=== PATIENT | male | born 1950 | race Caucasian/White ===

== ENCOUNTER 2017-03-24 10:14 | Emergency (ER) | payer BC, MEDICARE ==
[~2017-03-24] VITALS: Ht 180.3 cm; Wt 95.3 kg
[~2017-03-24 10:14] MED LIST: ASPIR-LOW81 MG PO; CIPRO; FUROSEMIDE40 MG PO; METOPROLOL SUCC25 MG PO; PACERONE100 MG PO; PRILOSEC; PRILOSEC20 MG PO; RENVELA800 MG PO; SODIUM BICARB; WARFARIN SODIUM1 MG PO; Z.0.FLOMAX0.4 MG
[2017-03-24 11:33] LABS: ALBUMIN 2.3 g/dL (3.5-5.0); ALBUMIN/GLOBULIN RATIO 0.5 (0.8-2.0); ANION GAP 22.1 mmol/L (8-16); CALCIUM 8.9 mg/dL (8.4-10.2); CREATININE, SERUM 4.45 mg/dL (0.72-1.25); POTASSIUM 4.1 mmol/L (3.5-5.1)
[2017-03-24] MEDS ORDERED: ONDANSETRON HCL INJ 2 MG/ML VIAL IV STA (12:48)
[2017-03-24] MEDS ORDERED: MORPHINE SULFATE 2 MG/ML SYR IV STA (12:48)
[2017-03-24 12:59] LABS: BASOPHILS % 0.1 % (0.0-1.0); LYMPHOCYTES # (AUTO) 0.9 (1.0-3.2); MEAN CORPUSCULAR HEMOGLOBIN 28.8 pg (28-32); MEAN CORPUSCULAR HGB CONC 31.8 g/dL (31-35); MEAN CORPUSCULAR VOLUME 90.4 fL (81-99); MONOCYTES % 6.4 % (4.4-11.3); NEUTROPHILS # (AUTO) 13.5 (2.1-6.9); PLATELET COUNT 235 x10e3/uL (140-360); RED BLOOD COUNT 2.19 x10e6/uL (4.3-5.7); RED CELL DISTRIBUTION WIDTH 18.5 % (11.7-14.4)
[2017-03-24 13:06] LABS: HEMATOCRIT 19.8 % (38.2-49.6); HEMOGLOBIN 6.3 g/dL (14.0-18.0)
[2017-03-24] MEDS ORDERED: DIATRIZOATE MEGL/DIATRIZOA SOD 30 ML BTL PO ONE (13:29)
[2017-03-24 13:31] LABS: AMYLASE 45 U/L (25-125); LIPASE 14 U/L (8-78)
[2017-03-24] MEDS ORDERED: DILTIAZEM HCL 5 MG/ML 5 ML VIAL IV STA (13:45)
[2017-03-24] MEDS ORDERED: SODIUM CHLORIDE 0.9% 1000ML 1,000 ML ONE (13:46)
[2017-03-24] MEDS ORDERED: ADENOSINE 6MG/2ML 4 ML ONE (13:46)
[2017-03-24] MEDS ORDERED: HYDROMORPHONE 2MG/ML INJ IV ONE (14:00)
[2017-03-24] MEDS ORDERED: MIDAZOLAM HCL 2 MG/2 ML VIAL IV STA ×2 (14:00→14:01)
[2017-03-24] MEDS ORDERED: ADENOSINE 6MG/2ML 2 ML ONE (14:01)
[2017-03-24] MEDS ORDERED: MIDAZOLAM HCL 2 MG/2 ML VIAL ONE (14:07)
[2017-03-24] MEDS ORDERED: ADENOSINE 6 MG/2 ML VIAL IV ONE ×2 (14:30)
--- NOTE | 2017-03-24 14:51 | Diagnostic Imaging Report ---
PROCEDURE: A single AP view of the chest. COMPARISON: Chest radiograph 10/10/2010. INDICATIONS: LOWER ABDOMINAL PAIN FINDINGS: Lines/tubes: None. Lungs: The lungs are well inflated. Diffuse consolidations throughout both lungs, most prominent in the mid and lower lungs. Pleura: There is no pleural effusion or pneumothorax. Heart and mediastinum: Stable mild enlargement of the cardiac silhouette. Bones: No acute bony abnormality. Median sternotomy wires. IMPRESSION: Diffuse consolidations throughout both lungs may represent multifocal pneumonia or alveolar edema in the appropriate clinical setting. Superimposed malignancy not excluded. Dictated by: Elgin Dias M.D. on 03/24/2017 at 14:54 Electronically approved by: Elgin Dias M.D. on 03/24/2017 at 14:59
[2017-03-24] MEDS ORDERED: PANTOPRAZOLE 40 MG 10ML VIAL IV STA (15:23)
[2017-03-24] MEDS ORDERED: PANTOPRAZOLE INJ 40 MG in SODIUM CHLORIDE 0.9% 50ML 50 ML IV SCH (15:30)
[2017-03-24] MEDS ORDERED: AZITHROMYCIN 500MG/NS 250 ML 250 ML IV ONE (16:30)
[2017-03-24] MEDS ORDERED: CEFTRIAXONE SOD 1 GM VIAL IV ONE (16:30)
[2017-03-24] MEDS ORDERED: PANTOPRAZOL 200MG/SOD CHL 0.9% 250 ML IV SCH (16:30)
--- NOTE | 2017-03-24 16:40 | Diagnostic Imaging Report ---
PROCEDURE: CT ABDOMEN AND PELVIS WITHOUT CONTRAST TECHNIQUE: The abdomen and pelvis were scanned utilizing a multidetector helical scanner from the diaphragm to the lesser trochanter. No IV contrast was administered because of elevated creatine. Coronal and sagittal multiplanar reformations were obtained. COMPARISON: CT abdomen and pelvis 04/07/2012, chest radiograph 03/24/2017 INDICATIONS: UPPER ABDOMINAL PAIN TODAY FINDINGS: ABSENCE OF INTRAVENOUS CONTRAST DECREASES SENSITIVITY FOR DETECTION OF FOCAL LESIONS AND VASCULAR PATHOLOGY. LOWER THORAX: Diffuse basilar opacities. Aortic valve prosthesis. Vascular calcifications. HEPATOBILIARY: Multiple hepatic cysts. An ill-defined approximately 5.9 x 7.8 x 7.9 cm hypoattenuating area in the left hepatic lobe measures greater than fluid density is indeterminate (series 2 image 31). No biliary ductal dilatation. SPLEEN: No splenomegaly. PANCREAS: No focal masses or ductal dilatation. ADRENALS: No adrenal nodules. KIDNEYS/URETERS: Polycystic kidney disease with enlarged kidneys containing innumerable cysts of varying complexity, some of which are hemorrhagic or contain calcifications. Evaluation for masses or cyst septations is limited without IV contrast. Right kidney measures approximately 35.2 cm in length and the left kidney measures approximately 29.7 cm in length. No hydronephrosis. Few calcifications may represent non-obstructing calculi versus cyst wall calcifications, for example in the right superior pole measuring 0.5 cm (coronal image 77). PELVIC ORGANS/BLADDER: Urinary bladder is collapsed. Prostate contains a nonspecific 1.7 cm hypoattenuating region centrally, but is suboptimally evaluated with CT. PERITONEUM / RETROPERITONEUM: Moderate amount of hyperdense fluid in the pelvis measures 56.6 HU and may represent hemorrhage. Fluid is also noted in the left paracolic cutter, measuring up to approximately 83.4 HU, which may suggest the source is in the upper abdomen, although streak artifacts from patients arms limits accurate determination of density. A 2.3 cm high attenuating collection in the anterior abdomen (series 2 image 54) may reflect a focal collection of hemorrhage or nodule. LYMPH NODES: No lymphadenopathy. VESSELS: Diffuse vascular calcifications. No abdominal aortic aneurysm. GI TRACT: No distention or wall thickening. BONES AND SOFT TISSUES: Unremarkable. IMPRESSION: 1. Moderate amount of likely hemorrhagic fluid in the left paracolic gutter and pelvis. Given aortic valve prosthesis, finding may reflect hemorrhage related to anticoagulation. Lack of left perinephric hematoma makes ruptured hemorrhagic renal cyst less likely. Hemorrhage from malignancy not excluded given the left hepatic lesion and questionable second tiny hemorrhagic collection in the anterior abdomen versus omental nodule. 2. Diffuse consolidations in both lung bases which may reflect pulmonary hemorrhage, multifocal pneumonia, less likely alveolar edema in absence of secondary findings. 3. Indeterminate left hepatic hypoattenuating lesion which may represent a mass or hemorrhagic/proteinaceous hepatic cyst. If GFR allows, recommend MRI or CT abdomen without and with contrast. Otherwise, recommend MRI without contrast for further characterization. 4. Polycystic kidney disease. Findings discussed with Dr. Adam on at [id number]. Dictated by: Elgin Dias M.D. on 03/24/2017 at 16:48 Electronically approved by: Elgin Dias M.D. on 03/24/2017 at 16:48
[2017-03-24] MEDS ORDERED: LEVOFLOXACIN 750MG/D5W 150ML 150 ML IV ONE (16:45)
[2017-03-24] MEDS ORDERED: PHYTONADIONE 10MG/ML 1 ML ONE (17:38)
[2017-03-24] MEDS ORDERED: SENSIPAR60 MG PO (19:36)
[2017-03-24] MEDS ORDERED: RENVELA0.8 GM (19:36)
[2017-03-24] MEDS ORDERED: LISINOPRIL10 MG PO (19:36)
[2017-03-24] MEDS ORDERED: VITAMIN D31000 UNIT PO (19:36)
[2017-03-24] MEDS ORDERED: OMEPRAZOLE20 MG PO (19:36)
[2017-03-24] MEDS ORDERED: AUGMENTIN (19:36)
[2017-03-24] MEDS ORDERED: WARFARIN SODIUM1 MG PO (19:36)
[2017-03-24] MEDS ORDERED: RENAGEL800 MG PO ×2 (19:36)
[2017-03-24] MEDS ORDERED: CLONIDINE HCL0.1 MG PO (19:36)
== END 2017-03-24 17:49 | disposition expired ==
LOC: ER 10:14
DX: I46.9 Cardiac arrest, cause unspecified (principal); J15.9 Unspecified bacterial pneumonia; R10.13 Epigastric pain; R10.811 Right upper quadrant abdominal tenderness; K92.1 Melena; D64.9 Anemia, unspecified; I10 Essential (primary) hypertension; Z95.2 Presence of prosthetic heart valve
CPT/HCPCS: 31500 ×2; 36415; 36430; 36556 ×2; 71045; 74176; 80053; 82150; 83690; 84484; 85025; 86900; 92950; 93005; J0153; J1170; J2250; J2270; J2405; J3430; J7030; P9016; 99285